=== PATIENT | female | born 1980 | race Caucasian/White ===

== ENCOUNTER 2022-05-07 15:14 | Outpatient (CLI) | payer OTHER | END 2022-05-07 15:15 | disposition home or self-care (01) | LOC: CSHMAMMO 15:14 | PROVIDERS: ATTEND Internal Medicine | DX: Z12.31 Encounter for screening mammogram for malignant neoplasm of breast (principal); Z98.890 Other specified postprocedural states | CPT/HCPCS: 77063; 77067 ==

== ENCOUNTER 2023-02-02 18:20 | Emergency (ER) | payer OTHER | END 2023-02-02 18:56 | disposition left against medical advice (07) | LOC: CSHERS 18:20 | DX: Z53.21 Procedure and treatment not carried out due to patient leaving prior to being seen by health care provider (principal) ==

== ENCOUNTER 2024-05-05 13:53 | Outpatient (CLI) | payer OTHER | END 2024-05-05 13:54 | disposition home or self-care (01) | LOC: CSHMAMMO 13:53 | PROVIDERS: ATTEND Internal Medicine | DX: Z12.31 Encounter for screening mammogram for malignant neoplasm of breast (principal); Z98.890 Other specified postprocedural states | CPT/HCPCS: 77063; 77067 ==